=== PATIENT | male | born 1985 | race Caucasian/White ===

== ENCOUNTER 2017-05-05 18:41 | Emergency (ER) | payer MEDICAID ==
--- NOTE | 2017-05-05 20:15 | ED Physician Chart ---
ED Chief Complaint/HPI - Patient Information Date Seen:: 05/05/17 Time Seen:: 20:15 Chief Complaint:: EAR ACHE History of Present Illness:: The patient reports having had gradual onset of a left sided earache for 3 days. The patient also states he has been "sick" for almost a month with nausea , vertigo, and a metallic taste in his mouth. His hearing is decreased in his left ear but in not accompanied by tinnitus. he denies any associated fever, chills or sweats. He has had a chronic cough with some sputum but denies any hemoptysis, night sweats or weight loss. The earache is a 6/10. Allergies:: Allergies Allergy/AdvReac Type Severity Reaction Status Date / Time No Known Allergies Allergy Verified 05/05/17 19:11 Vitals:: Vital Signs - 8 hr 05/05/17 19:11 Temp 97.9 F HR 69 RR 16 BP 160/90 O2 Sat % 98 ED Review of Systems - Review of Systems General/Constitutional: No fever, No chills, No weight loss, No weakness, No diaphoresis, No edema, No loss of appetite Skin: No skin lesions, No rash Head: Headache ( left earache), No light-headedness ENT: Earache Neck: No thyromegaly, No stiffness Cardio Vascular: No chest pain, No palpitations, edema Pulmonary: No SOB, Cough, Sputum, No wheezing GI: Nausea, No vomiting, No diarrhea, No pain, No constipation, No hematemesis G/U: No dysuria, No hematuria Musculoskeletal: No bone or joint pain, No back pain, No muscle pain Endocrine: No polyuria, No polydipsia Psychiatric: No prior psych history Hematopoietic: No bruising Neurological: No syncope, No weakness, No paresthesia, Dizziness, No confusion, Vertigo ED Past Medical History - Past Medical History Past Medical History: No significant medical hx Social History: Non Smoker, No Drug Use (knee surg) Family Medical History - Family Member Mother History Unknown: Yes ED Physical Exam - Physical Examination General/Constitutional: Well-developed, well-nourished, Alert, GCS 15, Non- toxic appearing Head: Atraumatic Eyes: Lids, conjuctiva normal, PERRL (NO NYSTAGMUS. SCLERA ANICTERIC), EOMI Skin: No rash, No skin lesions, No ecchymosis, No lymphadenopathy ENMT: External ears, nose nl, Lips, teeth, gums nl, Oropharynx nl, Tonsils nl ( ERYTHEMIC LT TM WITH DULLNESS. NO EXTERNAL FB'S OR INSECTS. DECREASED HEADRING OF FINGER FICTION LT COMPARED TO RT EAR.) Neck: Nontender, Full ROM w/o pain, No JVD, No nuchal rigidity, No mass, No stridor Respiratory: Nl effort/Exclusion, Clear to Auscultation, No Wheeze/Rhonchi/Rales Cardio Vascular: RRR, No murmur, gallop, rubs, NL S1 S2 Other Cardio Vascular comments:: Good pulses all four extremities. GI: No tenderness/rebounding/guarding, No organomegaly, No hernia, Normal BS's, Nondistended, No mass/bruits, No McBurney tenderness (am deferred at my discretion.) Extremities: normal strength in all extremities ( Left Lower extremity in leg splint.) Neuro/Psych: Alert/oriented, Normal sensory exam, Normal motor strength, Judgement/insight normal, Mood normal, No focal deficits Misc: Normal back, No paraspinal tenderness ED Labs/Radiology/EKG Results - Lab Results Results: no laboratory or radiographic studies indicated. ED Assessment - Assessment General Assessment: CASE SUMMARY: This 31 year old male presents with 3 days of left sided earache accompanied by decreased hearing in his left year. On exam he had a normal appearing auditory canal with a dull red TM. He has also "been sick" for the past month with vertigo and nausea. A diagnosis of Acute Otitis Media was made and the patient was discharged with a prescription for cephalexin 500 mg QID for 10 days. MDM DDX ACUTE EAR PAIN: NOT tonsillitis with radiated pain to left ear based on history and exam. NOT otitis external based on exam. NOT insect in external auditory canal based on exam. NOT Vivienne-Trauma based on NO history of diving under water or ascending to high altitudes. ED Septic Shock - . Is Septic Shock (SBP<90, OR Lactate>4 mmol\\L) present?: No - <6hrs of presentation: Vital Signs: Vital Signs - 8 hr 05/05/17 19:11 Temp 97.9 F HR 69 RR 16 BP 160/90 O2 Sat % 98 ED Discharge Plan - Patient Disposition Admit/Discharge/Transfer: PT DISCHARGED HOME Prescriptions: Cephalexin [Cephalexin*] 500 mg PO QID #40 tab Instructions: Otitis Media, Adult, [id number] Additional Instructions: FOLLOW UP WITH YOUR DOCTOR I 2-3 DAYS AND TO COME BACK TO ER IF SYMPTOMS WORSEN. TAKE YOUR MEDICATIONS PRESCRIBED
[2017-05-05] MEDS ORDERED: Morphine Sulfate 4 mg/mL 1mL Syr IVP ONE (20:25)
[2017-05-05] MEDS ORDERED: ceFAZolin 2 GM in Sodium Chloride 0.9% 100 ML IV ONE (20:26)
[2017-05-05] MEDS ORDERED: Morphine Sulfate 2 mg/mL 1mL Syr ONE (21:04)
== END 2017-05-05 22:10 | disposition home or self-care (01) ==
LOC: ER 18:41
DX: H92.02 Otalgia, left ear (principal); R11.0 Nausea; R42 Dizziness and giddiness
CPT/HCPCS: 99284; 96361; 96374; 96375; J2270; J2405; J0690; Z7502

== ENCOUNTER 2018-02-22 12:43 | Emergency (ER) | payer MEDICAID ==
--- NOTE | 2018-02-22 14:24 | ED Physician Chart ---
ED Chief Complaint/HPI - Patient Information Date Seen:: 02/22/18 Time Seen:: 13:00 Chief Complaint:: Left Groin/Scrotal Pain History of Present Illness:: onset x one week of intermittent left scrotal pain and left groin pain; pt denies trauma, H/As, S/T, neck pain, C/P, SOB, Abd. Pain, cough, A/N/V/D/C, fever, chills, or urinary s/s; pt is eating and is urinating well; pt last urinated one hour [employer] Allergies:: Allergies Allergy/AdvReac Type Severity Reaction Status Date / Time No Known Allergies Allergy Verified 05/05/17 19:11 Vitals:: Vital Signs - 8 hr 02/22/18 13:05 BP 146/97 O2 Sat % 98 Historian:: Patient Review:: Nurse's Note Reviewed ED Review of Systems - Review of Systems General/Constitutional: No fever, No chills, No weight loss, No weakness, No diaphoresis, No edema, No loss of appetite Skin: No skin lesions, No rash, No bruising Head: No headache, No light-headedness Eyes: No loss of vision, No pain, No diplopia ENT: No earache, No nasal drainage, No sore throat, No tinnitus Neck: No neck pain, No swelling, No thyromegaly, No stiffness, No mass noted Cardio Vascular: No chest pain, No palpitations, No PND, No orthopnea, No edema Pulmonary: No SOB, No cough, No sputum, No wheezing GI: No nausea, No vomiting, No diarrhea, No pain, No melena, No hematochezia, No constipation, No hematemesis G/U: No dysuria, No frequency, No hematuria, No nacturia Musculoskeletal: No bone or joint pain, No back pain, No muscle pain Endocrine: No polyuria, No polydipsia Psychiatric: No prior psych history, No depression, No anxiety, No suicidal ideation, No homicidal ideation, No auditory hallucination, No visual hallucination Hematopoietic: No bruising, No lymphadenopathy Allergic/Immuno: No urticaria, No angioedema Neurological: No syncope, No focal symptoms, No weakness, No paresthesia, No headache, No seizure, No dizziness, No confusion, No vertigo ED Past Medical History - Past Medical History Obtainable: Yes Past Medical History: No significant medical hx Family History: None Social History: Non Smoker, No Alcohol, No Drug Use, Single Surgical History: None Psychiatricy History: None Medication: Reviewed Family Medical History - Family Member Mother History Unknown: Yes Living Status: Still Living Hx Family Diabetes: Yes ED Physical Exam - Physical Examination General/Constitutional: Awake, Well-developed, well-nourished, Alert, No distress, GCS 15, Non-toxic appearing, Ambulatory Head: Atraumatic Eyes: Lids, conjuctiva normal, PERRL, EOMI Skin: Nl inspection, No rash, No skin lesions, No ecchymosis, Well hydrated, No lymphadenopathy ENMT: External ears, nose nl, TM canals nl, Nasal exam nl, Lips, teeth, gums nl , Oropharynx nl, Tonsils nl Neck: Nontender, Full ROM w/o pain, No JVD, No nuchal rigidity, No bruit, No mass, No stridor Other Neck comments:: supple; no meningeal signs; no cervical tenderness Respiratory: Nl effort/Exclusion, Clear to Auscultation, No Wheeze/Rhonchi/Rales Cardio Vascular: RRR, No murmur, gallop, rubs, NL S1 S2, Carotid/Femoral/Distal pulses equal bilaterally GI: No tenderness/rebounding/guarding, No organomegaly, No hernia, Normal BS's, Nondistended, No mass/bruits, No McBurney tenderness, Rectum exam nl Other GI comments:: no pulsatile masses; good BS : No CVA tenderness, NL external genitalia, No discharge Other comments:: + Left Epididymus tenderness; + small reducible left inguinal hernia; good NV functions Extremities: No tenderness or effusion, Full ROM, normal strength in all extremities, No edema, Normal digits & nails Neuro/Psych: Alert/oriented, DTR's symmetric, Normal sensory exam, Normal motor strength, Judgement/insight normal, Mood normal, Normal gait, No focal deficits Other Neuro/Psych comments:: no focal signs Misc: Normal back, No paraspinal tenderness ED Labs/Radiology/EKG Results - Radiology Results Comments:: U/S: NAD; Negative ED Septic Shock - . Is Septic Shock (SBP<90, OR Lactate>4 mmol\L) present?: No - <6hrs of presentation: Vital Signs: Vital Signs - 8 hr 02/22/18 13:05 BP 146/97 O2 Sat % 98 ED Reassessment (Disposition) - Reassessment Reassessment:: pt tolerated po fluids well in ER; pt is asymptomatic upon discharge Reassessment Condition:: Improved - Diagnosis Diagnosis:: Left Inguinal/Groin pain; Left Inguinal Hernia; Left Epididymitis; Scrotal Pain ; Reducible Hernia - Aftercare/Follow up Instructions Aftercare/Follow-Up Instructions:: Counseled pt regarding lab results/diagnosis & need follow up, Refer to Discharge Instructions, Counseled pt & family regarding lab results/diagnosis & need follow up Medication Prescribed:: Rx: Doxycycline 100mg po bid x 10 days; Tylenol 500mg po qid prn pain/fever; / Scrotal/Hernia Care Instructions - Patient Disposition Discharge/Transfer:: Home Condition at Disposition:: Stable, Improved (RTER prn if existing s/s reoccur and/or get worse and/or any other new s/s occur; U/S Care Instructions; Refer to Surgeon/Urologist/Casing Blower/Hernia Surgeon ROBERTO; F/U with PMD in one day or prn; RTER prn if concerned)
--- NOTE | 2018-02-22 14:46 | Diagnostic Imaging Report ---
Ultrasound scrotum HISTORY: Left testicular pain, rule out torsion COMPARISON: None Technique/procedure: Sonography of the scrotum and contents was performed in multiple planes. FINDINGS: The right testicle measures measures 4.1 x 2.4 x 2.7 cm demonstrates a mildly heterogeneous echotexture. No focal lesions identified. The left testicle measures 2.5 x 3.1 x 3.7 cm demonstrating a mildly heterogeneous echotexture. 2 mm echogenic focus of the left mid testicle is noted. The bilateral epididymal heads are not visualized on this exam. There are small bilateral hydroceles. Vascular flow to both testicles are noted. IMPRESSION: Vascular flow to the bilateral testicles noted. No sonographic evidence of testicular torsion. Please correlate clinically. Small bilateral hydroceles. 2 mm echogenic focus the left testicle probably representing a calcification. Findings may have been due to old infectious or inflammatory process.
== END 2018-02-22 14:48 | disposition home or self-care (01) ==
LOC: ER 12:43
DX: N45.1 Epididymitis (principal); K40.90 Unilateral inguinal hernia, without obstruction or gangrene, not specified as recurrent
CPT/HCPCS: 99284; 96372; 76870; J1885; Z7502

== ENCOUNTER 2018-03-31 12:33 | Emergency (ER) | payer MEDICAID ==
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
== END 2018-03-31 13:30 | disposition home or self-care (01) ==
LOC: ER 12:33
DX: S40.212A Abrasion of left shoulder, initial encounter (principal); S80.212A Abrasion, left knee, initial encounter; S00.81XA Abrasion of other part of head, initial encounter; S50.812A Abrasion of left forearm, initial encounter; I10 Essential (primary) hypertension; V19.3XXA Pedal cyclist (driver) (passenger) injured in unspecified nontraffic accident, initial encounter; Y93.55 Activity, bike riding; Y92.832 Beach as the place of occurrence of the external cause; Y99.8 Other external cause status
CPT/HCPCS: Z7502; Z7610